=== PATIENT | female | born 1950 | race Caucasian/White ===

== ENCOUNTER 2017-07-18 19:39 | Inpatient (IN) | payer MEDICARE, BC ==
[~2017-07-18] VITALS: Ht 157.5 cm; Wt 59.5 kg
[2017-07-18 20:15] LABS: BASOPHILS % (AUTO) 0.1 % (0-1); EOSINOPHILS # (AUTO) 0.2 X10'3 (0-0.9); EOSINOPHILS % (AUTO) 1.4 % (0-6); HEMATOCRIT 42.1 % (35.0-45.0); HEMOGLOBIN 14.4 g/dl (12.0-16.0); LYMPHOCYTES % (AUTO) 6.1 % (21-51); MEAN CORPUSCULAR HEMOGLOBIN 31.8 PG (27.0-31.0); MEAN CORPUSCULAR HGB CONC 34.2 % (33.0-36.5); MEAN CORPUSCULAR VOLUME 92.8 FL (78-98); MEAN PLATELET VOLUME 7.5 FL (7.4-10.4); MONOCYTES # (AUTO) 0.8 X10'3 (0-0.9); MONOCYTES % (AUTO) 4.8 % (2-12); NEUTROPHILS # (AUTO) 14.7 X10'3 (1.8-7.7); NEUTROPHILS % (AUTO) 87.6 % (42-75); PLATELET COUNT 720 X10'3 (140-440); RED BLOOD COUNT 4.54 X10'6 (4.20-5.60); WHITE BLOOD COUNT 16.8 X10'3 (4.5-11.0)
[2017-07-18 20:31] LABS: ALANINE AMINOTRANSFERASE 43 U/L (12-78); ALBUMIN 2.7 G/DL (3.4-5.0); ALBUMIN/GLOBULIN RATIO 0.6 (1.1-1.5); ALKALINE PHOSPHATASE 70 IU/L (46-116); ANION GAP 11 (8-16); ASPARTATE AMINO TRANSFERASE 32 U/L (10-37); BILIRUBIN,TOTAL 0.8 MG/DL (0.1-1.0); BLOOD UREA NITROGEN 15 MG/DL (7-18); BUN/CREATININE RATIO 16.9 (6.6-38.0); CALCIUM 9.1 MG/DL (8.5-10.1); CHLORIDE 100 MMOL/L (99-107); CREATININE 0.89 MG/DL (0.40-0.90); GLUCOSE 127 MG/DL (70-104); POTASSIUM 3.8 MMOL/L (3.5-5.1); SODIUM 139 MMOL/L (135-145); TOTAL CARBON DIOXIDE 28.1 MMOL/L (24-32); TOTAL PROTEIN 7.1 G/DL (6.4-8.2); eGFR 63 ML/MIN
[2017-07-18] MEDS ORDERED: potassium Cl 20 mEq SR tablet PO PRN ×2 (20:55)
[2017-07-18] MEDS ORDERED: HYDROmorphone 1 mg/ml syringe IV PRN ×2 (20:55)
[2017-07-18] MEDS ORDERED: ondansetron/PF 4mg/2ml inj IV ONE (20:55)
[2017-07-18] MEDS ORDERED: magnesium 2GM in 50ml NS 50 ML IV PRN (20:55)
[2017-07-18] MEDS ORDERED: magnesium hydroxide 30ml (MOM) UD suspension PO PRN (20:55)
[2017-07-18] MEDS ORDERED: metoclopramide 5 mg/ml inj IV PRN (20:55)
[2017-07-18] MEDS ORDERED: diphenhydrAMINE 25mg capsule PO PRN (20:55)
[2017-07-18] MEDS ORDERED: potassium Cl 40MEQ/NS 500ml 500 ML IV PRN ×2 (20:55)
[2017-07-18] MEDS ORDERED: magnesium Cl slow-release 64mg tablet PO PRN (20:55)
[2017-07-18] MEDS ORDERED: magnesium 4gm in 100ml NS 100 ML IV PRN (20:55)
[2017-07-18] MEDS ORDERED: temazepam 15mg capsule PO PRN (21:00)
[2017-07-18] MEDS ORDERED: pantoprazole 40 MG vial IV ONE (21:10)
[2017-07-18 21:22] LABS: MAGNESIUM 1.8 MG/DL (1.5-2.4)
[2017-07-18] MEDS ORDERED: iohexol 300mg/ml 100ml inj. ONE (21:22)
[2017-07-18] MEDS: normal saline 1000ml 1,000 ML IV SCH (21:44)
[2017-07-18] MEDS ORDERED: piperacillin/tazo 4.5gm/100ml 100 ML IV SCH (22:00)
[2017-07-18 22:14] LABS: CLARITY,URINE CLEAR (Clear); COLOR,URINE YELLOW (Yellow); GLUCOSE, URINE NEGATIVE (Neg); KETONES,URINE 15 mg/dl (Neg); LEUKOCYTE ESTERASE ,URINE NEGATIVE (Neg); NITRITES, URINE NEGATIVE (Neg); OCCULT BLOOD,URINE SMALL (Neg); PROTEIN,URINE TRACE mg/dl (Neg); UROBILINOGEN,URINE 0.2 E.U/dL (0.2-1.0)
[2017-07-18 22:18] LABS: UA COLLECTION TYPE FOLEY CATH
[2017-07-18 22:20] VITALS: BP 147/80
[2017-07-18 22:36] LABS: BACTERIA,URINE FEW /HPF (Neg); CAL OXALATE CRYSTALS FEW /HPF (NEGATIVE); RBC,URINE 0-2 /HPF (0-2); SQUAMOUS EPITHELIAL CELL,UR FEW /LPF (FEW); WBC,URINE 0-4 /HPF (0-4)
[2017-07-18] MEDS: metroNIDAZOLE-Flagyl 500mg/NS 100 ML IV SCH (23:22)
[2017-07-19] VITALS: BP 131/80
[2017-07-19] MEDS ORDERED: HYDROmorphone inj. 0.5 MG/0.5 ML DISP.SYRIN ONE (00:52)
[2017-07-19 04:52] LABS: BASOPHILS % (AUTO) 0.2 % (0-1); EOSINOPHILS % (AUTO) 0.2 % (0-6); HEMATOCRIT 38.6 % (35.0-45.0); HEMOGLOBIN 13.2 g/dl (12.0-16.0); LYMPHOCYTES # (AUTO) 0.9 X10'3 (1.1-4.8); LYMPHOCYTES % (AUTO) 6.7 % (21-51); MEAN CORPUSCULAR HEMOGLOBIN 31.7 PG (27.0-31.0); MEAN CORPUSCULAR HGB CONC 34.3 % (33.0-36.5); MEAN CORPUSCULAR VOLUME 92.3 FL (78-98); MEAN PLATELET VOLUME 7.6 FL (7.4-10.4); MONOCYTES # (AUTO) 0.7 X10'3 (0-0.9); MONOCYTES % (AUTO) 4.9 % (2-12); NEUTROPHILS # (AUTO) 11.8 X10'3 (1.8-7.7); PLATELET COUNT 662 X10'3 (140-440); RED BLOOD COUNT 4.18 X10'6 (4.20-5.60); RED CELL DISTRIBUTION WIDTH 15.1 % (11.5-14.5); WHITE BLOOD COUNT 13.4 X10'3 (4.5-11.0)
[2017-07-19 05:11] LABS: ALANINE AMINOTRANSFERASE 39 U/L (12-78); ALBUMIN 2.4 G/DL (3.4-5.0); ALBUMIN/GLOBULIN RATIO 0.6 (1.1-1.5); ALKALINE PHOSPHATASE 63 IU/L (46-116); ANION GAP 9 (8-16); ASPARTATE AMINO TRANSFERASE 24 U/L (10-37); BILIRUBIN,TOTAL 0.6 MG/DL (0.1-1.0); BLOOD UREA NITROGEN 14 MG/DL (7-18); BUN/CREATININE RATIO 16.5 (6.6-38.0); CALCIUM 8.7 MG/DL (8.5-10.1); CHLORIDE 104 MMOL/L (99-107); CREATININE 0.85 MG/DL (0.40-0.90); GLUCOSE 116 MG/DL (70-104); MAGNESIUM 1.8 MG/DL (1.5-2.4); POTASSIUM 4.5 MMOL/L (3.5-5.1); SODIUM 141 MMOL/L (135-145); TOTAL CARBON DIOXIDE 28.3 MMOL/L (24-32); TOTAL PROTEIN 6.4 G/DL (6.4-8.2); eGFR 67 ML/MIN
[2017-07-19] MEDS: K and/or MAG REPLACEMENT MC SCH (06:35)
[2017-07-19 07:00] VITALS: BP 124/70
[2017-07-19] MEDS: normal saline 1000ml 1,000 ML IV SCH ×3 (07:17→20:05)
[2017-07-19] MEDS: metroNIDAZOLE-Flagyl 500mg/NS 100 ML IV SCH ×2 (07:17→19:28)
[2017-07-19] MEDS ORDERED: apixaban 5mg tablet PO SCH (08:00)
[2017-07-19 08:59] LABS: C DIFF ANTIGEN NEGATIVE (NEGATIVE); C DIFF SPECIMEN=DIARRHEA? ACCEPTABLE; C DIFFICILE TOXINS A&B NEGATIVE (Neg)
[2017-07-19] MEDS: acetaminophen 325mg tablet PO PRN (09:15)
[2017-07-19] MEDS ORDERED: HYDROmorphone inj. 0.5 MG/0.5 ML DISP.SYRIN IV PRN (10:33)
[2017-07-19 11:00] VITALS: BP 120/72
[2017-07-19] MEDS: HYDROmorphone inj. 0.5 MG/0.5 ML DISP.SYRIN IV PRN ×2 (15:43→20:12)
[2017-07-19] MEDS ORDERED: heparin 10,000 units/1 ML INJ IV ONE (17:40)
[2017-07-19 18:00] VITALS: BP 143/78
[2017-07-19 18:47] LABS: PARTIAL THROMBOPLASTIN TIME 31 SECONDS (22-32)
[2017-07-19] MEDS ORDERED: enoxaparin 60mg/0.6ml syringe SUBCUT SCH (20:00)
[2017-07-19] MEDS: diatr meglu/diatrizoate 30ml oral sol.-(3 dose) bottle PO SCH (21:20)
[2017-07-19] MEDS: ondansetron/PF 4mg/2ml inj IV PRN (23:22)
[2017-07-20] VITALS: BP 157/88
[2017-07-20] MEDS: HYDROmorphone inj. 0.5 MG/0.5 ML DISP.SYRIN IV PRN ×2 (00:22→11:16)
[2017-07-20 03:40] LABS: BASOPHILS % (AUTO) 0.3 % (0-1); EOSINOPHILS # (AUTO) 0.3 X10'3 (0-0.9); EOSINOPHILS % (AUTO) 2.8 % (0-6); HEMATOCRIT 36.3 % (35.0-45.0); HEMOGLOBIN 12.2 g/dl (12.0-16.0); LYMPHOCYTES % (AUTO) 9.4 % (21-51); MEAN CORPUSCULAR HEMOGLOBIN 31.5 PG (27.0-31.0); MEAN CORPUSCULAR HGB CONC 33.7 % (33.0-36.5); MEAN CORPUSCULAR VOLUME 93.6 FL (78-98); MEAN PLATELET VOLUME 7.7 FL (7.4-10.4); MONOCYTES # (AUTO) 0.9 X10'3 (0-0.9); MONOCYTES % (AUTO) 8.3 % (2-12); NEUTROPHILS # (AUTO) 8.4 X10'3 (1.8-7.7); NEUTROPHILS % (AUTO) 79.2 % (42-75); PLATELET COUNT 717 X10'3 (140-440); RED BLOOD COUNT 3.88 X10'6 (4.20-5.60); RED CELL DISTRIBUTION WIDTH 15.1 % (11.5-14.5); WHITE BLOOD COUNT 10.7 X10'3 (4.5-11.0)
[2017-07-20 03:56] LABS: ALANINE AMINOTRANSFERASE 29 U/L (12-78); ALBUMIN 2.2 G/DL (3.4-5.0); ALBUMIN/GLOBULIN RATIO 0.6 (1.1-1.5); ALKALINE PHOSPHATASE 53 IU/L (46-116); ANION GAP 12 (8-16); ASPARTATE AMINO TRANSFERASE 14 U/L (10-37); BILIRUBIN,TOTAL 0.6 MG/DL (0.1-1.0); BLOOD UREA NITROGEN 11 MG/DL (7-18); BUN/CREATININE RATIO 15.5 (6.6-38.0); CALCIUM 8.2 MG/DL (8.5-10.1); CHLORIDE 105 MMOL/L (99-107); CREATININE 0.71 MG/DL (0.40-0.90); GLUCOSE 105 MG/DL (70-104); MAGNESIUM 1.7 MG/DL (1.5-2.4); POTASSIUM 3.6 MMOL/L (3.5-5.1); SODIUM 141 MMOL/L (135-145); TOTAL CARBON DIOXIDE 24.5 MMOL/L (24-32); TOTAL PROTEIN 5.9 G/DL (6.4-8.2); eGFR 82 ML/MIN
[2017-07-20] MEDS: heparin 10,000 units/1 ML INJ IV PRN ×2 (04:38→18:47)
[2017-07-20 07:02] VITALS: BP 139/80
[2017-07-20] MEDS: normal saline 1000ml 1,000 ML IV SCH ×2 (07:29→22:03)
[2017-07-20] MEDS: diatr meglu/diatrizoate 30ml oral sol.-(3 dose) bottle PO SCH ×2 (07:29→09:29)
[2017-07-20] MEDS: metroNIDAZOLE-Flagyl 500mg/NS 100 ML IV SCH (07:30)
[2017-07-20] MEDS: K and/or MAG REPLACEMENT MC SCH (08:00)
[2017-07-20 11:00] VITALS: BP 137/177
[2017-07-20] MEDS: ondansetron/PF 4mg/2ml inj IV PRN (11:13)
[2017-07-20] MEDS ORDERED: CefTRIAXone 2gm/D5W 50ml ADVTG 50 ML IV SCH (14:50)
[2017-07-20 20:00] VITALS: BP 134/71
[2017-07-20] MEDS: mag hydrox/Alum hydrox/simeth 30ml oral suspension PO PRN (22:01)
[2017-07-20 23:00] VITALS: BP 134/73
[2017-07-21] MEDS: acetaminophen 325mg tablet PO PRN ×3 (02:28→23:35)
[2017-07-21] MEDS: normal saline 1000ml 1,000 ML IV SCH ×2 (03:54→19:42)
[2017-07-21 05:00] LABS: BASOPHILS % (AUTO) 0.3 % (0-1); EOSINOPHILS # (AUTO) 0.3 X10'3 (0-0.9); EOSINOPHILS % (AUTO) 3.9 % (0-6); HEMATOCRIT 32.1 % (35.0-45.0); HEMOGLOBIN 10.9 g/dl (12.0-16.0); LYMPHOCYTES % (AUTO) 11.9 % (21-51); MEAN CORPUSCULAR HEMOGLOBIN 31.3 PG (27.0-31.0); MEAN PLATELET VOLUME 7.6 FL (7.4-10.4); MONOCYTES % (AUTO) 11.6 % (2-12); NEUTROPHILS # (AUTO) 6.1 X10'3 (1.8-7.7); NEUTROPHILS % (AUTO) 72.3 % (42-75); PLATELET COUNT 630 X10'3 (140-440); RED BLOOD COUNT 3.49 X10'6 (4.20-5.60); RED CELL DISTRIBUTION WIDTH 15.2 % (11.5-14.5); WHITE BLOOD COUNT 8.5 X10'3 (4.5-11.0)
[2017-07-21 05:16] LABS: ALANINE AMINOTRANSFERASE 17 U/L (12-78); ALBUMIN/GLOBULIN RATIO 0.5 (1.1-1.5); ALKALINE PHOSPHATASE 46 IU/L (46-116); ANION GAP 8 (8-16); ASPARTATE AMINO TRANSFERASE 12 U/L (10-37); BILIRUBIN,TOTAL 0.4 MG/DL (0.1-1.0); BLOOD UREA NITROGEN 5 MG/DL (7-18); BUN/CREATININE RATIO 6.9 (6.6-38.0); CALCIUM 8.2 MG/DL (8.5-10.1); CHLORIDE 105 MMOL/L (99-107); CREATININE 0.72 MG/DL (0.40-0.90); GLUCOSE 98 MG/DL (70-104); MAGNESIUM 1.6 MG/DL (1.5-2.4); POTASSIUM 3.6 MMOL/L (3.5-5.1); SODIUM 142 MMOL/L (135-145); TOTAL CARBON DIOXIDE 28.8 MMOL/L (24-32); TOTAL PROTEIN 5.8 G/DL (6.4-8.2); eGFR 81 ML/MIN
[2017-07-21] MEDS: heparin 10,000 units/1 ML INJ IV PRN (05:17)
[2017-07-21 07:07] VITALS: BP 147/77
[2017-07-21] MEDS: K and/or MAG REPLACEMENT MC SCH (08:00)
[2017-07-21 11:00] VITALS: BP 138/80
[2017-07-21 12:37] LABS: CRYPTOSPORIDIUM AG NEGATIVE (Neg); GIARDIA LAMBLIA AG NEGATIVE (Neg)
[2017-07-21] MEDS: apixaban 5mg tablet PO SCH (19:40)
[2017-07-21 20:00] VITALS: BP 152/85
[2017-07-21 23:43] VITALS: BP 147/81
[2017-07-22] MEDS: normal saline 1000ml 1,000 ML IV SCH ×2 (04:53→11:40)
[2017-07-22 05:23] LABS: BASOPHILS % (AUTO) 0.6 % (0-1); EOSINOPHILS # (AUTO) 0.4 X10'3 (0-0.9); EOSINOPHILS % (AUTO) 4.8 % (0-6); HEMATOCRIT 32.6 % (35.0-45.0); HEMOGLOBIN 11.1 g/dl (12.0-16.0); LYMPHOCYTES # (AUTO) 1.8 X10'3 (1.1-4.8); LYMPHOCYTES % (AUTO) 25.3 % (21-51); MEAN CORPUSCULAR HEMOGLOBIN 31.4 PG (27.0-31.0); MEAN CORPUSCULAR VOLUME 92.3 FL (78-98); MEAN PLATELET VOLUME 7.3 FL (7.4-10.4); MONOCYTES # (AUTO) 1.2 X10'3 (0-0.9); MONOCYTES % (AUTO) 16.4 % (2-12); NEUTROPHILS # (AUTO) 3.9 X10'3 (1.8-7.7); NEUTROPHILS % (AUTO) 52.9 % (42-75); PLATELET COUNT 552 X10'3 (140-440); RED BLOOD COUNT 3.53 X10'6 (4.20-5.60); RED CELL DISTRIBUTION WIDTH 14.6 % (11.5-14.5); WHITE BLOOD COUNT 7.3 X10'3 (4.5-11.0)
[2017-07-22 05:36] LABS: ALANINE AMINOTRANSFERASE 16 U/L (12-78); ALBUMIN 2.1 G/DL (3.4-5.0); ALBUMIN/GLOBULIN RATIO 0.6 (1.1-1.5); ALKALINE PHOSPHATASE 47 IU/L (46-116); ANION GAP 7 (8-16); ASPARTATE AMINO TRANSFERASE 13 U/L (10-37); BILIRUBIN,TOTAL 0.4 MG/DL (0.1-1.0); BLOOD UREA NITROGEN 3 MG/DL (7-18); BUN/CREATININE RATIO 4.1 (6.6-38.0); CALCIUM 8.2 MG/DL (8.5-10.1); CHLORIDE 106 MMOL/L (99-107); CREATININE 0.73 MG/DL (0.40-0.90); GLUCOSE 84 MG/DL (70-104); MAGNESIUM 1.6 MG/DL (1.5-2.4); POTASSIUM 3.2 MMOL/L (3.5-5.1); SODIUM 143 MMOL/L (135-145); TOTAL CARBON DIOXIDE 30.1 MMOL/L (24-32); TOTAL PROTEIN 5.4 G/DL (6.4-8.2); eGFR 79 ML/MIN
[2017-07-22 07:23] VITALS: BP 151/87
[2017-07-22] MEDS ORDERED: magnesium 2GM in 50ml NS 50 ML IV PRN (07:40)
[2017-07-22] MEDS ORDERED: magnesium 4gm in 100ml NS 100 ML IV PRN (07:40)
[2017-07-22] MEDS ORDERED: potassium Cl 20 mEq SR tablet PO PRN (07:40)
[2017-07-22] MEDS ORDERED: potassium Cl 40MEQ/NS 500ml 500 ML IV PRN ×2 (07:40)
[2017-07-22] MEDS ORDERED: magnesium Cl slow-release 64mg tablet PO PRN (07:40)
[2017-07-22] MEDS: K and/or MAG REPLACEMENT MC SCH (07:41)
[2017-07-22] MEDS: apixaban 5mg tablet PO SCH (08:07)
[2017-07-22] MEDS: mag hydrox/Alum hydrox/simeth 30ml oral suspension PO PRN (08:07)
[2017-07-22] MEDS: potassium Cl 20 mEq SR tablet PO PRN ×2 (08:07→11:38)
[2017-07-22 11:34] VITALS: BP 163/90
[2017-07-22] MEDS ORDERED: APIX5TAB3 PO (13:00)
== END 2017-07-22 13:35 | disposition home or self-care (01) | DRG 862 ==
LOC: ER 19:40 → ED HOLD 20:53 → SUR 3N 22:19
PROVIDERS: ADMIT Internal Medicine; ATTEND Family Medicine
PROC: BW211ZZ Computerized Tomography (CT Scan) of Abdomen and Pelvis using Low Osmolar Contrast (ICD-10-PCS; principal; 2017-07-18)
DX: T81.4XXA Infection following a procedure, initial encounter (principal); I26.99 Other pulmonary embolism without acute cor pulmonale; N17.9 Acute kidney failure, unspecified; A09 Infectious gastroenteritis and colitis, unspecified; K57.92 Diverticulitis of intestine, part unspecified, without perforation or abscess without bleeding; D47.3 Essential (hemorrhagic) thrombocythemia; I10 Essential (primary) hypertension; R79.89 Other specified abnormal findings of blood chemistry; Y83.8 Other surgical procedures as the cause of abnormal reaction of the patient, or of later complication, without mention of misadventure at the time of the procedure; R31.0 Gross hematuria; Z90.49 Acquired absence of other specified parts of digestive tract; Z87.440 Personal history of urinary (tract) infections; Y92.89 Other specified places as the place of occurrence of the external cause
CPT/HCPCS: 36415; 74176; 74177; 80053; 81001; 83605; 83735; 85025; 85730; 87040; 87045; 87046; 87070; 87324; 87328; 87329; 87336; 87449; 89055; 93970; 99285; C9113; J0696; J1170; J1644; J2405; J2765; J3490; J7030; Q9963; Q9967